=== PATIENT | male | born 1970 | race Two or more races ===

== ENCOUNTER 2024-05-18 13:53 | Emergency (ER) | payer OTHER ==
[~2024-05-18] VITALS: Ht 167.6 cm; Wt 82.1 kg
[2024-05-18] MEDS ORDERED: COZAAR100 MG (14:14)
[2024-05-18] MEDS ORDERED: ASPIRIN 325 MG TABLET.EC PO STA (14:24)
[2024-05-18] MEDS ORDERED: ASPIRIN 325 MG TABLET.EC PO ONE (14:45)
[2024-05-18 14:58] LABS: HEMATOCRIT 43.8 % (39.0-48.0); HEMOGLOBIN 15.3 g/dL (13-16.00); MEAN CELL VOLUME 87.3 fL (80.0-100.00); MEAN CORPUSCULAR HEMOGLOBIN 30.4 pg (27.00-32.0); MEAN CORPUSCULAR HGB CONC 34.9 g/dl (32.0-36.0); PLATELET COUNT 248 K/uL (150-450); RED BLOOD COUNT 5.02 M/uL (4.00-6.00); RED CELL DISTRIBUTION WIDTH 13.8 % (11.5-14.5)
[2024-05-18 15:03] VITALS: BP 144/84; O2SAT 97
[2024-05-18 15:18] LABS: INR 1.03; PARTIAL THROMBOPLASTIN TIME 30.7 SECONDS (22.0-34.0); PROTHROMBIN TIME 11.2 SECONDS (9.0-11.5)
[2024-05-18 15:24] LABS: CALCIUM 9.3 mg/dL (8.5-10.1); CREATININE SERUM 1.5 mg/dL (0.70-1.30); GFR 49.34; POTASSIUM 4.02 mEq/L (3.5-5.1)
== END 2024-05-18 16:36 | disposition home or self-care (01) ==
LOC: ER 13:55
PROVIDERS: Emergency Medicine
DX: R07.9 Chest pain, unspecified (principal)